=== PATIENT | female | born 1990 ===

== ENCOUNTER → 2024-04-14 | Day surgery (SDC) | payer OTHER ==
[2024-04-09 11:48] VITALS: BP 124/83
[2024-04-09 12:36] LABS: HEMATOCRIT 39.5 % (36.0-45.00); HEMOGLOBIN 12.9 g/dL (12.0-15.00); MEAN CELL VOLUME 81.9 fL (80.00-100.00); MEAN CORPUSCULAR HEMOGLOBIN 26.7 pg (27.00-32.0); MEAN CORPUSCULAR HGB CONC 32.6 g/dl (32.0-36.0); PLATELET COUNT 338 K/uL (150-450); RED BLOOD COUNT 4.82 M/uL (4.00-6.00); RED CELL DISTRIBUTION WIDTH 16.2 % (11.5-14.5)
[2024-04-09 12:51] LABS: PH,URINE 6.5 (5.0-8.0); URINE APPEARANCE Clear; URINE BILIRRUBIN Negative (NEGATIVE); URINE BLOOD Negative; URINE COLOR Yellow; URINE GLUCOSE Negative (NEGATIVE); URINE KETONE Negative (NEGATIVE); URINE LEUKOCYTE Negative; URINE NITRATE Negative; URINE PROTEIN Negative (NEGATIVE); URINE UROBILINOGEN 0.2 E.U./dl
[2024-04-09 12:55] LABS: URINE BACTERIA 96.9 uL (0.0-1933); URINE EPITHELIAL CELLS 4.9 uL (0.0-38.8); URINE RBC 15.8 uL (0.0-20.8)
[2024-04-09 12:59] LABS: URINE WBC 0.4 uL (0.0-23.2)
[2024-04-09 13:15] LABS: INR 1.1; PARTIAL THROMBOPLASTIN TIME 27.3 SECONDS (22.0-34.0); PROTHROMBIN TIME 11.9 SECONDS (9.0-11.5)
[2024-04-09 13:23] LABS: ALBUMIN 3.9 gm/dL (3.4-5.0); BILIRUBIN TOTAL 0.85 mg/dL (0.3-1.2); CALCIUM 9.6 mg/dL (8.5-10.1); CREATININE SERUM 0.66 mg/dL (0.55-1.02); GFR 101.91; GLOBULINA 3.6 G/DL (2.4-3.5); POTASSIUM 4.17 mEq/L (3.5-5.1); TOTAL PROTEIN 7.5 gm/dL (6.4-8.2)
[~2024-04-14] MED LIST: CEFAZOLIN SODIUM 1,000 MG VIAL ONE; KETOROLAC TROMETHAMINE 30 MG VIAL IV PRN; LEVO-T50 MCG PO; METRONIDAZOLE45 G1; MONDOXYNE NL100 MG PO; MONTELUKAST SOD10 MG PO; MORPHINE SULFATE 4 MG/ML VIAL IV ONE; MORPHINE SULFATE 4 MG/ML VIAL IV PRN; ONDANSETRON HCL 2 MG/ML VIAL IV PRN; VERDESO100 GM TOP
== END | disposition home or self-care (01) ==
LOC: ADM 04-09 07:45 → CIR.AMB 07:45
PROVIDERS: ATTEND Student in an Organized Health Care Education/Training Program
DX: Z30.2 Encounter for sterilization (principal); Z91.013 Allergy to seafood